=== PATIENT | male | born 1995 | race Caucasian/White ===

== ENCOUNTER 2022-05-01 12:35 | Emergency (ER) | payer BC ==
[2022-05-01] MEDS ORDERED: DOXYCYCLINE HY100 M2 PO (15:58)
[2022-05-01] MEDS ORDERED: BACTROBAN OINT22 GM EXT (15:58)
== END 2022-05-01 16:35 | disposition home or self-care (01) ==
LOC: ER1 12:35
DX: S11.95XA Open bite of unspecified part of neck, initial encounter (principal); W54.0XXA Bitten by dog, initial encounter; Z23 Encounter for immunization
CPT/HCPCS: 90471; 90715; 99283